=== PATIENT | male | born 1955 | race Caucasian/White ===

== ENCOUNTER 2018-12-29 13:04 | Emergency (ER) | payer OTHER ==
[~2018-12-29] VITALS: Ht 170.2 cm; Wt 91.9 kg
[2018-12-29 13:19] VITALS: BP 174/92; Ht 170.2 cm; Wt 91.9 kg
== END 2018-12-29 13:29 | disposition left against medical advice (07) ==
LOC: ED 13:04
DX: Z53.21 Procedure and treatment not carried out due to patient leaving prior to being seen by health care provider (principal)